=== PATIENT | female | born 1950 | race Caucasian/White ===

== ENCOUNTER 2024-08-01 21:27 | Inpatient (IN) | payer MEDICARE, BC ==
[~2024-08-01] VITALS: Ht 182.9 cm; Wt 79.4 kg
[2024-08-01] MEDS ORDERED: TRAM50TA2 PO (21:50)
[2024-08-01] MEDS ORDERED: VITA1CAP PO (21:50)
[2024-08-01] MEDS ORDERED: FLUT16SP BNOSTRILS (21:50)
[2024-08-01] MEDS ORDERED: FERR-68 PO (21:50)
[2024-08-01] MEDS ORDERED: METO-356 PO (21:50)
[2024-08-01] MEDS ORDERED: MELA5TAB20 PO (21:50)
[2024-08-01] MEDS ORDERED: AZEL6DRO5 EACHEYE (21:50)
[2024-08-01] MEDS ORDERED: OFLO5DRO3 LEFTEYE (21:50)
[2024-08-01] MEDS ORDERED: ESTR42.53 VG (21:50)
[2024-08-01] MEDS ORDERED: FURO20TA4 PO (21:50)
[2024-08-01] MEDS ORDERED: PHEN-894 PO (21:50)
[2024-08-01] MEDS ORDERED: KETO5DRO39 EACHEYE (21:50)
[2024-08-01] MEDS ORDERED: GABA300T25 PO (21:50)
[2024-08-01] MEDS ORDERED: MICO24CM3 VG (21:50)
[2024-08-01] MEDS ORDERED: DICL100G31 TP (21:50)
[2024-08-01] MEDS ORDERED: METF-494 PO (21:50)
[2024-08-01] MEDS ORDERED: SPIR25TA6 PO (21:50)
[2024-08-01] MEDS ORDERED: ATOR80TA PO (21:50)
[2024-08-01] MEDS ORDERED: PANT40TA49 PO (21:50)
[2024-08-01] MEDS ORDERED: CHOL10005 PO (21:50)
[2024-08-01] MEDS ORDERED: ALEN70TA80 PO (21:50)
[2024-08-01] MEDS ORDERED: LOSA25TA27 PO (21:50)
[2024-08-01] MEDS ORDERED: ESCI-9 PO (21:50)
[2024-08-01] MEDS ORDERED: APIX5TAB PO (21:50)
[2024-08-01] MEDS ORDERED: NITR-84 PO (21:50)
[2024-08-01] MEDS ORDERED: KETO15CR2 TP (21:50)
[2024-08-01] MEDS ORDERED: TRAZ-182 PO (21:50)
[2024-08-01 22:37] LABS: BASOPHILS % (AUTO) 0.2 % (0.0-2.0); EOSINOPHILS % (AUTO) 0.4 % (0.0-7.0); HEMATOCRIT 30.1 % (31.2-41.9); HEMOGLOBIN 9.8 g/dL (10.9-14.3); LYMPHOCYTES # (AUTO) 0.8 K/uL (0.8-4.8); LYMPHOCYTES % (AUTO) 9.8 % (20.5-51.5); MEAN CORPUSCULAR HEMOGLOBIN 27.6 uug (24.7-32.8); MEAN CORPUSCULAR HGB CONC 33 g/dL (32.3-35.6); MEAN CORPUSCULAR VOLUME 84.8 fL (75.5-95.3); MONOCYTES # (AUTO) 0.6 K/uL (0.1-1.30); MONOCYTES % (AUTO) 7.3 % (0.0-11.0); NEUTROPHILS # (AUTO) 6.6 K/uL (1.8-8.9); NEUTROPHILS % (AUTO) 82.3 % (38.5-71.5); PLATELET COUNT (AUTO) 301 K/uL (179-408); RED BLOOD CELL COUNT(AUTO) 3.54 MIL/uL (3.63-4.92); RED CELL DISTRIBUTION WIDTH 18.7 % (12.3-17.7); WHITE BLOOD COUNT (AUTO) 8.1 K/uL (3.8-11.8)
[2024-08-01 22:40] LABS: DIFFERENTIAL COMMENT 1
[2024-08-01 22:44] LABS: CALCIUM 10.5 mg/dL (8.5-10.1); CARBON DIOXIDE 32 mmol/L (21-32); CHLORIDE 101 mmol/L (98-107); CREATININE 0.9 mg/dL (0.6-1.3); GLUCOSE 140 mg/dL (74-106); POTASSIUM 4.9 mmol/L (3.5-5.1); SODIUM SERUM 137 mmol/L (136-145); UREA NITROGEN, BLOOD 8 mg/dL (7-18)
[2024-08-01 22:50] LABS: ALANINE AMINOTRANSFERASE 14 U/L (14-59); ALBUMIN 3.4 g/dL (3.4-5.0); ALKALINE PHOSPHATASE 86 U/L (50-136); ASPARTATE AMINOTRANSFERASE 10 U/L (15-37); BILIRUBIN,DIRECT 0.2 mg/dL (0.0-0.2); BILIRUBIN,TOTAL 0.8 mg/dL (0.2-1.0); TOTAL PROTEIN, SERUM 7.4 g/dL (6.4-8.2)
[2024-08-01] MEDS: IV NORMAL SALINE 500 ML BAG IV ONE (22:50)
[2024-08-01] MEDS ORDERED: METOCLOPRAMIDE HCL 10 MG/2 ML VIAL ONE (23:24)
[2024-08-01] MEDS ORDERED: MORPHINE SULFATE 4 MG/1 ML DISP.SYRIN ONE (23:24)
[2024-08-01] MEDS: METOCLOPRAMIDE HCL 10 MG/2 ML VIAL IV ONE (23:32)
[2024-08-01] MEDS: MORPHINE SULFATE 4 MG/1 ML DISP.SYRIN IV ONE (23:32)
[2024-08-02] VITALS (7 sets, daily range): BP systolic 134–166; BP diastolic 47–88; TEMP 97.6–98.4; O2SAT 95–100
[2024-08-02] MEDS ORDERED: ONDANSETRON 4 MG/2 ML VIAL IV PRN (01:30)
[2024-08-02] MEDS ORDERED: DEXTROSE 50% 50 ML DISP.SYRIN IV PRN (01:30)
[2024-08-02] MEDS ORDERED: REMEDY ESSENTIAL ZINC PASTE 113 GM TP PRN (01:30)
[2024-08-02] MEDS ORDERED: ACETAMINOPHEN 325 MG TABLET PO PRN (01:30)
[2024-08-02] MEDS: MORPHINE SULFATE 2 MG/1 ML DISP.SYRIN IV PRN (03:07)
[2024-08-02] MEDS: BLOOD SUGAR DIAGNOSTIC 1 EACH STRIP VI SCH (06:59)
[2024-08-02 08:22] LABS: BASOPHILS % (AUTO) 0.3 % (0.0-2.0); EOSINOPHILS # (AUTO) 0.1 K/uL (0.0-0.7); EOSINOPHILS % (AUTO) 1.3 % (0.0-7.0); HEMATOCRIT 29.8 % (31.2-41.9); HEMOGLOBIN 9.7 g/dL (10.9-14.3); LYMPHOCYTES # (AUTO) 0.9 K/uL (0.8-4.8); LYMPHOCYTES % (AUTO) 14.9 % (20.5-51.5); MEAN CORPUSCULAR HEMOGLOBIN 27.7 uug (24.7-32.8); MEAN CORPUSCULAR HGB CONC 33 g/dL (32.3-35.6); MEAN CORPUSCULAR VOLUME 84.7 fL (75.5-95.3); MONOCYTES # (AUTO) 0.5 K/uL (0.1-1.30); MONOCYTES % (AUTO) 9.6 % (0.0-11.0); NEUTROPHILS # (AUTO) 4.2 K/uL (1.8-8.9); NEUTROPHILS % (AUTO) 73.9 % (38.5-71.5); PLATELET COUNT (AUTO) 289 K/uL (179-408); RED BLOOD CELL COUNT(AUTO) 3.51 MIL/uL (3.63-4.92); RED CELL DISTRIBUTION WIDTH 18.7 % (12.3-17.7); WHITE BLOOD COUNT (AUTO) 5.7 K/uL (3.8-11.8)
[2024-08-02 08:27] LABS: DIFFERENTIAL COMMENT 1
[2024-08-02] MEDS: TRAMADOL HCL 50 MG TABLET PO PRN (08:29)
[2024-08-02] MEDS: SPIRONOLACTONE 25 MG TABLET PO SCH (08:29)
[2024-08-02] MEDS: ESCITALOPRAM OXALATE 10 MG TABLET PO SCH (08:30)
[2024-08-02] MEDS: METOPROLOL SUCCINATE XL 25 MG TAB.SR.24H PO SCH (08:30)
[2024-08-02] MEDS: CHOLECALCIFEROL 1,000 UNIT TABLET PO SCH (08:30)
[2024-08-02] MEDS: PANTOPRAZOLE SODIUM 40 MG TABLET.DR PO SCH (08:30)
[2024-08-02] MEDS: GABAPENTIN 300 MG CAPSULE PO SCH ×2 (08:30→21:00)
[2024-08-02] MEDS: FUROSEMIDE 20 MG TABLET PO SCH (08:30)
[2024-08-02] MEDS: VITAMIN B COMPLEX 1 TABLET PO SCH (08:31)
[2024-08-02] MEDS: LOSARTAN POTASSIUM 25 MG TABLET PO SCH (08:31)
[2024-08-02] MEDS: FLUTICASONE PROP NASAL SPRAY 16 GM BOTTLE NS SCH (08:31)
[2024-08-02 08:34] LABS: CALCIUM 9.4 mg/dL (8.5-10.1); CARBON DIOXIDE 30 mmol/L (21-32); CHLORIDE 102 mmol/L (98-107); CREATININE 0.9 mg/dL (0.6-1.3); GLUCOSE 130 mg/dL (74-106); MAGNESIUM 1.4 mg/dL (1.8-2.4); PHOSPHOROUS 4.8 mg/dL (2.5-4.9); POTASSIUM 3.7 mmol/L (3.5-5.1); SODIUM SERUM 142 mmol/L (136-145); UREA NITROGEN, BLOOD 8 mg/dL (7-18)
[2024-08-02] MEDS ORDERED: Medication Not On Formulary EA (Gabapentin (Gralise) 1 TAB) PO SCH (09:00)
[2024-08-02] MEDS ORDERED: METF-440 PO (13:33)
[2024-08-02] MEDS: MAGNESIUM OXIDE 400 MG TABLET PO SCH (14:38)
[2024-08-02] MEDS: INSULIN REGULAR, HUMAN 1000 UNIT/10 ML VIAL SQ PRN (16:58)
[2024-08-02] MEDS: TRAZODONE 50 MG TABLET PO SCH (21:00)
[2024-08-02] MEDS: DOCUSATE SODIUM 100 MG CAPSULE PO SCH (21:00)
[2024-08-02] MEDS: ATORVASTATIN 40 MG TABLET PO SCH (21:01)
[2024-08-03 00:41] VITALS: O2SAT 97
[2024-08-03 05:49] VITALS: BP 139/54; TEMP 97.7; O2SAT 96
[2024-08-03] MEDS: MELOXICAM 7.5 MG TABLET PO SCH (10:07)
[2024-08-03 15:43] LABS: BASOPHILS % (AUTO) 0.6 % (0.0-2.0); EOSINOPHILS # (AUTO) 0.2 K/uL (0.0-0.7); EOSINOPHILS % (AUTO) 2.8 % (0.0-7.0); HEMATOCRIT 27.5 % (31.2-41.9); HEMOGLOBIN 9.1 g/dL (10.9-14.3); LYMPHOCYTES # (AUTO) 1.2 K/uL (0.8-4.8); LYMPHOCYTES % (AUTO) 18.1 % (20.5-51.5); MEAN CORPUSCULAR HEMOGLOBIN 28.3 uug (24.7-32.8); MEAN CORPUSCULAR HGB CONC 33 g/dL (32.3-35.6); MEAN CORPUSCULAR VOLUME 85.3 fL (75.5-95.3); MONOCYTES # (AUTO) 0.6 K/uL (0.1-1.30); MONOCYTES % (AUTO) 8.3 % (0.0-11.0); NEUTROPHILS # (AUTO) 4.8 K/uL (1.8-8.9); NEUTROPHILS % (AUTO) 70.2 % (38.5-71.5); PLATELET COUNT (AUTO) 286 K/uL (179-408); RED BLOOD CELL COUNT(AUTO) 3.23 MIL/uL (3.63-4.92); RED CELL DISTRIBUTION WIDTH 18.4 % (12.3-17.7); WHITE BLOOD COUNT (AUTO) 6.8 K/uL (3.8-11.8)
[2024-08-03 15:45] LABS: ERYTHROCYTE SEDIMENTATION RATE 40 MM/HR (0-20)
[2024-08-03 15:46] LABS: DIFFERENTIAL COMMENT 1
[2024-08-03] MEDS: CEFAZOLIN 1 G in IV DEXTROSE 5% 50 ML IV SCH (16:54)
[2024-08-03 19:14] VITALS: BP 105/40; TEMP 98.2; O2SAT 94
[2024-08-03 20:00] VITALS: BP 131/91; TEMP 97.4; O2SAT 94
[2024-08-04 05:00] VITALS: BP 152/67; TEMP 98.1; O2SAT 98
[2024-08-04] MEDS: APIXABAN 5 MG TABLET PO SCH (11:06)
[2024-08-04] MEDS: MAGNESIUM HYDROXIDE 30 ML LIQUID UDC PO PRN (14:13)
[2024-08-04 16:02] VITALS: BP 132/57; TEMP 98.3; O2SAT 96
== END 2024-08-04 20:15 | disposition home health service (06) | DRG 561 ==
LOC: ER 21:30 → MEDSURG3 08-02 02:20 → MEDSURG1 08-03 09:16
PROVIDERS: ATTEND Internal Medicine
PROC: 05HD33Z Insertion of Infusion Device into Right Cephalic Vein, Percutaneous Approach (ICD-10-PCS; principal; 2024-08-02)
DX: T84.84XA Pain due to internal orthopedic prosthetic devices, implants and grafts, initial encounter (principal); M25.562 Pain in left knee; M25.462 Effusion, left knee; R26.2 Difficulty in walking, not elsewhere classified; I27.20 Pulmonary hypertension, unspecified; Z96.652 Presence of left artificial knee joint; E83.42 Hypomagnesemia; Z79.899 Other long term (current) drug therapy; Z79.84 Long term (current) use of oral hypoglycemic drugs; Z79.01 Long term (current) use of anticoagulants; D64.9 Anemia, unspecified; K21.9 Gastro-esophageal reflux disease without esophagitis; I11.0 Hypertensive heart disease with heart failure; I50.9 Heart failure, unspecified; E11.9 Type 2 diabetes mellitus without complications; G89.29 Other chronic pain; G89.18 Other acute postprocedural pain; Y79.2 Prosthetic and other implants, materials and accessory orthopedic devices associated with adverse incidents; Y92.89 Other specified places as the place of occurrence of the external cause
CPT/HCPCS: 36415; 73560; 83605; 83735; 84100; 85025; 85651; 86140; 87040; 94760; G0378; J0690; J1815; J2270; J2765; J3535; J7040

== ENCOUNTER 2024-08-07 15:55 | Inpatient (IN) | payer MEDICARE, BC ==
[~2024-08-07] VITALS: Ht 157.5 cm; Wt 66.7 kg
[~2024-08-07 15:55] MED LIST: ALEN70TA80 PO; APIX5TAB PO; ATOR80TA PO; AZEL6DRO5 EACHEYE; CHOL10005 PO; DICL100G31 TP; ESCI-9 PO; ESTR42.53 VG; FERR-68 PO; FLUT16SP BNOSTRILS; FURO20TA4 PO; GABA300T25 PO; KETO15CR2 TP; KETO5DRO39 EACHEYE; LOSA25TA27 PO; MELA5TAB20 PO; METF-440 PO; METO-356 PO; MICO24CM3 VG; OFLO5DRO3 LEFTEYE; PANT40TA49 PO; PHEN-894 PO; SPIR25TA6 PO; TRAM50TA2 PO; TRAZ-182 PO; VITA1CAP PO
[2024-08-07 16:42] LABS: BASOPHILS % (AUTO) 0.4 % (0.0-2.0); EOSINOPHILS % (AUTO) 0.2 % (0.0-7.0); HEMATOCRIT 30.2 % (31.2-41.9); LYMPHOCYTES # (AUTO) 0.7 K/uL (0.8-4.8); LYMPHOCYTES % (AUTO) 12.8 % (20.5-51.5); MEAN CORPUSCULAR HEMOGLOBIN 27.9 uug (24.7-32.8); MEAN CORPUSCULAR HGB CONC 33 g/dL (32.3-35.6); MEAN CORPUSCULAR VOLUME 84.1 fL (75.5-95.3); MONOCYTES # (AUTO) 0.4 K/uL (0.1-1.30); MONOCYTES % (AUTO) 7.5 % (0.0-11.0); NEUTROPHILS # (AUTO) 4.5 K/uL (1.8-8.9); NEUTROPHILS % (AUTO) 79.1 % (38.5-71.5); PLATELET COUNT (AUTO) 284 K/uL (179-408); RED BLOOD CELL COUNT(AUTO) 3.59 MIL/uL (3.63-4.92); RED CELL DISTRIBUTION WIDTH 18.2 % (12.3-17.7); WHITE BLOOD COUNT (AUTO) 5.7 K/uL (3.8-11.8)
[2024-08-07 16:50] LABS: DIFFERENTIAL COMMENT 1
[2024-08-07 16:57] LABS: CALCIUM 9.7 mg/dL (8.5-10.1); CARBON DIOXIDE 28 mmol/L (21-32); CHLORIDE 99 mmol/L (98-107); GLUCOSE 116 mg/dL (74-106); POTASSIUM 3.9 mmol/L (3.5-5.1); SODIUM SERUM 137 mmol/L (136-145); UREA NITROGEN, BLOOD 16 mg/dL (7-18)
[2024-08-07 17:04] LABS: ALANINE AMINOTRANSFERASE 14 U/L (14-59); ALBUMIN 3.2 g/dL (3.4-5.0); ALKALINE PHOSPHATASE 89 U/L (50-136); ASPARTATE AMINOTRANSFERASE 29 U/L (15-37); BILIRUBIN,DIRECT 0.4 mg/dL (0.0-0.2); BILIRUBIN,TOTAL 1.1 mg/dL (0.2-1.0); TOTAL PROTEIN, SERUM 7.4 g/dL (6.4-8.2)
[2024-08-07 17:21] LABS: NT-PRO BNP 1226 pg/mL (0-125)
[2024-08-07 17:23] LABS: *BILIRUBIN,URIN NEGATIVE (NEGATIVE); *CLARITY,URINE CLEAR (CLEAR); *COLOR,URINE YELLOW (YELLOW); *KETONES,URINE TRACE (NEGATIVE); *PROTEIN,URINE 2+ (NEGATIVE); *UROBILINOGEN,URINE 0.2 E.U./dl (NORMAL); LEUKOCYTE ESTERASE ,URINE TRACE (NEGATIVE); NITRITE, URINE NEGATIVE (NEGATIVE); UGLUCOSE NEGATIVE (NEGATIVE)
[2024-08-07 17:24] LABS: *BLOOD, URINE TRACE (NEGATIVE)
[2024-08-07 17:45] LABS: BACTERIA,URINE FEW /HPF (NONE SEEN); RBC,URINE 0-3 /HPF (0-3); SQUAMOUS EPITHELIAL CELL,UR FEW /HPF (NONE SEEN)
[2024-08-07] MEDS ORDERED: ONDANSETRON 4 MG/2 ML VIAL ONE (17:59)
[2024-08-07] MEDS: ONDANSETRON 4 MG/2 ML VIAL IV ONE ×2 (18:05)
[2024-08-07] MEDS ORDERED: VANCOMYCIN IV 200 ML ONE (19:32)
[2024-08-07] MEDS ORDERED: CEFTRIAXONE /D5W 50ML IVPB **ER PYXIS IV ONE (19:32)
[2024-08-07] MEDS: VANCOMYCIN IV 1,000 MG in IV DEXTROSE 5% 250 ML IV ONE (19:35)
[2024-08-07] MEDS ORDERED: diphenhydrAMINE 50 MG/1 ML VIAL ONE (21:16)
[2024-08-07] MEDS: diphenhydrAMINE 50 MG/1 ML VIAL IV ONE (21:16)
[2024-08-07] MEDS: CEFTRIAXONE 2 G in IV DEXTROSE 5% 100 ML IV ONE (22:11)
[2024-08-07] MEDS ORDERED: ENOXAPARIN SODIUM 40 MG/0.4 ML DISP.SYRIN SQ SCH (23:00)
[2024-08-07] MEDS ORDERED: KETOROLAC 0.5% OPHT DROP 3 ML BOTTLE EACHEYE SCH (23:00)
[2024-08-07] MEDS ORDERED: KETOROLAC TROMETHAMINE 10 MG TABLET PO PRN (23:45)
[2024-08-08] MEDS: TRAZODONE 50 MG TABLET PO SCH (00:40)
[2024-08-08] MEDS: ATORVASTATIN 40 MG TABLET PO SCH (00:41)
[2024-08-08] MEDS: TRAMADOL HCL 50 MG TABLET PO PRN (00:41)
[2024-08-08 00:44] VITALS: BP 173/75; TEMP 100.5; O2SAT 98
[2024-08-08] MEDS: ACETAMINOPHEN 325 MG TABLET PO PRN (00:55)
[2024-08-08] MEDS: IV NS 1000 ML 1,000 ML IV PRN (00:56)
[2024-08-08] MEDS: MORPHINE SULFATE 2 MG/1 ML DISP.SYRIN IV PRN (01:38)
[2024-08-08 06:00] VITALS: BP 154/69; TEMP 98.2; O2SAT 97
[2024-08-08] MEDS: ALENDRONATE SODIUM 70 MG TABLET PO SCH (06:36)
[2024-08-08 06:42] LABS: BASOPHILS % (AUTO) 0.5 % (0.0-2.0); EOSINOPHILS # (AUTO) 0.1 K/uL (0.0-0.7); HEMATOCRIT 27.2 % (31.2-41.9); HEMOGLOBIN 9.1 g/dL (10.9-14.3); LYMPHOCYTES # (AUTO) 1.2 K/uL (0.8-4.8); LYMPHOCYTES % (AUTO) 28.5 % (20.5-51.5); MEAN CORPUSCULAR HEMOGLOBIN 28.4 uug (24.7-32.8); MEAN CORPUSCULAR HGB CONC 34 g/dL (32.3-35.6); MEAN CORPUSCULAR VOLUME 84.5 fL (75.5-95.3); MONOCYTES # (AUTO) 0.3 K/uL (0.1-1.30); MONOCYTES % (AUTO) 8.2 % (0.0-11.0); NEUTROPHILS # (AUTO) 2.5 K/uL (1.8-8.9); NEUTROPHILS % (AUTO) 60.8 % (38.5-71.5); PLATELET COUNT (AUTO) 248 K/uL (179-408); RED BLOOD CELL COUNT(AUTO) 3.21 MIL/uL (3.63-4.92); WHITE BLOOD COUNT (AUTO) 4.1 K/uL (3.8-11.8)
[2024-08-08] MEDS ORDERED: PANTOPRAZOLE SODIUM 40 MG TABLET.DR PO SCH (07:00)
[2024-08-08 07:05] LABS: CALCIUM 9.3 mg/dL (8.5-10.1); CARBON DIOXIDE 29 mmol/L (21-32); CHLORIDE 102 mmol/L (98-107); CREATININE 0.8 mg/dL (0.6-1.3); GLUCOSE 120 mg/dL (74-106); MAGNESIUM 1.7 mg/dL (1.8-2.4); PHOSPHOROUS 3.1 mg/dL (2.5-4.9); POTASSIUM 3.5 mmol/L (3.5-5.1); SODIUM SERUM 139 mmol/L (136-145); UREA NITROGEN, BLOOD 11 mg/dL (7-18)
[2024-08-08 07:11] LABS: DIFFERENTIAL COMMENT 1
[2024-08-08] MEDS: ENOXAPARIN SODIUM 40 MG/0.4 ML DISP.SYRIN SQ SCH (08:45)
[2024-08-08] MEDS: FUROSEMIDE 20 MG TABLET PO SCH (08:45)
[2024-08-08] MEDS: PHENAZOPYRIDINE HCL 100 MG TABLET PO SCH (08:45)
[2024-08-08] MEDS: METOPROLOL SUCCINATE XL 25 MG TAB.SR.24H PO SCH (08:46)
[2024-08-08] MEDS: CHOLECALCIFEROL 1,000 UNIT TABLET PO SCH (08:46)
[2024-08-08] MEDS: METFORMIN HCL 500 MG TABLET PO SCH (08:46)
[2024-08-08] MEDS: PANTOPRAZOLE SODIUM 40 MG TABLET.DR PO SCH ×2 (08:46→16:30)
[2024-08-08] MEDS: ESCITALOPRAM OXALATE 10 MG TABLET PO SCH (08:46)
[2024-08-08] MEDS: LOSARTAN POTASSIUM 25 MG TABLET PO SCH (08:47)
[2024-08-08] MEDS: SPIRONOLACTONE 25 MG TABLET PO SCH (08:47)
[2024-08-08] MEDS: VITAMIN B COMPLEX 1 TABLET PO SCH (08:48)
[2024-08-08] MEDS ORDERED: KETOROLAC 0.5% OPHT DROP 3 ML BOTTLE EACHEYE SCH (09:00)
[2024-08-08] MEDS ORDERED: FLUTICASONE PROP NASAL SPRAY 16 GM BOTTLE NS SCH (09:00)
[2024-08-08] MEDS: ONDANSETRON 4 MG/2 ML VIAL IV PRN (11:59)
[2024-08-08 12:00] VITALS: BP 148/58; TEMP 97.8; O2SAT 97
[2024-08-08] MEDS: VANCOMYCIN HCL 750 MG in IV DEXTROSE 5% 250 ML IV SCH (12:01)
[2024-08-08] MEDS: MAGNESIUM OXIDE 400 MG TABLET PO ONE (12:05)
[2024-08-08 16:00] VITALS: BP 124/49; TEMP 98.4; O2SAT 98
[2024-08-09 06:40] VITALS: BP 172/67; TEMP 98; O2SAT 98
[2024-08-09 08:00] VITALS: BP 142/56; TEMP 98.1; O2SAT 98
[2024-08-09 08:36] LABS: CALCIUM 9.1 mg/dL (8.5-10.1); CARBON DIOXIDE 28 mmol/L (21-32); CHLORIDE 105 mmol/L (98-107); CREATININE 0.9 mg/dL (0.6-1.3); GLUCOSE 85 mg/dL (74-106); MAGNESIUM 1.7 mg/dL (1.8-2.4); POTASSIUM 3.8 mmol/L (3.5-5.1); SODIUM SERUM 141 mmol/L (136-145); UREA NITROGEN, BLOOD 7 mg/dL (7-18)
[2024-08-09] MEDS: FERROUS SULFATE 325 MG TABEC PO SCH (09:38)
[2024-08-09] MEDS: GABAPENTIN 300 MG CAPSULE PO SCH (09:39)
[2024-08-09] MEDS: MAGNESIUM OXIDE 400 MG TABLET PO ONE (12:58)
[2024-08-09 20:50] VITALS: BP 166/64; TEMP 98.2; O2SAT 97
[2024-08-09] MEDS: MELATONIN 3 MG TABLET PO SCH (20:56)
[2024-08-10 05:52] VITALS: BP 134/77; TEMP 97.9; O2SAT 95
[2024-08-10 07:44] VITALS: BP 180/69; TEMP 97.8; O2SAT 98
[2024-08-10 07:54] LABS: CALCIUM 9.3 mg/dL (8.5-10.1); CARBON DIOXIDE 28 mmol/L (21-32); CHLORIDE 106 mmol/L (98-107); CREATININE 0.8 mg/dL (0.6-1.3); GLUCOSE 95 mg/dL (74-106); MAGNESIUM 1.7 mg/dL (1.8-2.4); POTASSIUM 3.7 mmol/L (3.5-5.1); SODIUM SERUM 142 mmol/L (136-145); UREA NITROGEN, BLOOD 4 mg/dL (7-18)
[2024-08-10] MEDS: MAGNESIUM OXIDE 400 MG TABLET PO ONE (09:34)
[2024-08-10 11:48] VITALS: BP 165/67; TEMP 97.7; O2SAT 97
[2024-08-10] MEDS: DIPHENOXYLATE HCL/ATROP SULF TABLET PO PRN (12:07)
[2024-08-10 12:28] LABS: BASOPHILS % (AUTO) 0.2 % (0.0-2.0); DIFFERENTIAL COMMENT 1; EOSINOPHILS # (AUTO) 0.1 K/uL (0.0-0.7); EOSINOPHILS % (AUTO) 1.5 % (0.0-7.0); HEMATOCRIT 28.8 % (31.2-41.9); HEMOGLOBIN 9.6 g/dL (10.9-14.3); LYMPHOCYTES # (AUTO) 0.7 K/uL (0.8-4.8); LYMPHOCYTES % (AUTO) 13.3 % (20.5-51.5); MEAN CORPUSCULAR HEMOGLOBIN 28.3 uug (24.7-32.8); MEAN CORPUSCULAR HGB CONC 33 g/dL (32.3-35.6); MEAN CORPUSCULAR VOLUME 84.8 fL (75.5-95.3); MONOCYTES # (AUTO) 0.3 K/uL (0.1-1.30); NEUTROPHILS # (AUTO) 4.1 K/uL (1.8-8.9); PLATELET COUNT (AUTO) 281 K/uL (179-408); RED BLOOD CELL COUNT(AUTO) 3.39 MIL/uL (3.63-4.92); RED CELL DISTRIBUTION WIDTH 17.5 % (12.3-17.7); WHITE BLOOD COUNT (AUTO) 5.2 K/uL (3.8-11.8)
[2024-08-10 15:44] VITALS: BP 144/66; TEMP 97.8; O2SAT 97
[2024-08-10 19:54] VITALS: BP 160/76; TEMP 98.1; O2SAT 95
[2024-08-10] MEDS: LOPERAMIDE HCL 2 MG CAPSULE PO PRN (20:39)
[2024-08-10] MEDS: VANCOMYCIN HCL 750 MG in IV DEXTROSE 5% 250 ML IV SCH (21:25)
[2024-08-10 22:10] VITALS: BP 148/70; TEMP 98.1; O2SAT 95
[2024-08-11] MEDS: ZOLPIDEM 5 MG TABLET PO PRN (01:20)
[2024-08-11] MEDS: TRAZODONE 50 MG TABLET PO PRN (01:48)
[2024-08-11 05:15] VITALS: BP 161/77; TEMP 97.4; O2SAT 95
[2024-08-11] MEDS ORDERED: TRAZODONE 50 MG TABLET PO PRN (05:30)
[2024-08-11 06:49] LABS: BASOPHILS % (AUTO) 0.4 % (0.0-2.0); EOSINOPHILS # (AUTO) 0.1 K/uL (0.0-0.7); EOSINOPHILS % (AUTO) 2.3 % (0.0-7.0); HEMATOCRIT 27.8 % (31.2-41.9); HEMOGLOBIN 9.6 g/dL (10.9-14.3); LYMPHOCYTES # (AUTO) 1.3 K/uL (0.8-4.8); LYMPHOCYTES % (AUTO) 24.5 % (20.5-51.5); MEAN CORPUSCULAR HGB CONC 35 g/dL (32.3-35.6); MONOCYTES # (AUTO) 0.4 K/uL (0.1-1.30); MONOCYTES % (AUTO) 7.7 % (0.0-11.0); NEUTROPHILS # (AUTO) 3.3 K/uL (1.8-8.9); NEUTROPHILS % (AUTO) 65.1 % (38.5-71.5); PLATELET COUNT (AUTO) 279 K/uL (179-408); RED BLOOD CELL COUNT(AUTO) 3.31 MIL/uL (3.63-4.92); RED CELL DISTRIBUTION WIDTH 17.5 % (12.3-17.7); WHITE BLOOD COUNT (AUTO) 5.1 K/uL (3.8-11.8)
[2024-08-11 07:06] LABS: CALCIUM 8.9 mg/dL (8.5-10.1); CARBON DIOXIDE 28 mmol/L (21-32); CHLORIDE 105 mmol/L (98-107); CREATININE 0.8 mg/dL (0.6-1.3); GLUCOSE 92 mg/dL (74-106); MAGNESIUM 1.3 mg/dL (1.8-2.4); PHOSPHOROUS 3.3 mg/dL (2.5-4.9); POTASSIUM 3.5 mmol/L (3.5-5.1); SODIUM SERUM 141 mmol/L (136-145); UREA NITROGEN, BLOOD 4 mg/dL (7-18)
[2024-08-11 07:08] LABS: DIFFERENTIAL COMMENT 1
[2024-08-11 11:36] VITALS: BP 164/46; TEMP 98.3; O2SAT 97
[2024-08-11] MEDS: MAGNESIUM SULFATE/D5W 100 ML IV SCH (11:48)
[2024-08-11] MEDS ORDERED: LIDOCAINE HCL 1% 20 ML VIAL IJ PRN (12:45)
[2024-08-11 16:00] VITALS: BP 133/64; TEMP 98.2; O2SAT 94
[2024-08-11 19:46] VITALS: BP 157/61; TEMP 98.1; O2SAT 96
[2024-08-12] MEDS: MELATONIN 3 MG TABLET PO PRN (02:51)
[2024-08-12 05:33] VITALS: BP 133/54; TEMP 98.2; O2SAT 95
[2024-08-12 07:37] LABS: CARBON DIOXIDE 27 mmol/L (21-32); CHLORIDE 105 mmol/L (98-107); CREATININE 0.8 mg/dL (0.6-1.3); GLUCOSE 96 mg/dL (74-106); MAGNESIUM 2.1 mg/dL (1.8-2.4); POTASSIUM 3.5 mmol/L (3.5-5.1); SODIUM SERUM 140 mmol/L (136-145); UREA NITROGEN, BLOOD 6 mg/dL (7-18)
[2024-08-12 11:48] VITALS: BP 131/49; TEMP 97.9; O2SAT 97
[2024-08-12 15:44] VITALS: BP 140/69; TEMP 97.9; O2SAT 97
[2024-08-12] MEDS ORDERED: VANCOMYCIN IV 1,000 MG in IV DEXTROSE 5% 250 ML IV SCH (21:00)
[2024-08-15] MEDS ORDERED: ALENDRONATE SODIUM 70 MG TABLET PO SCH (06:00)
== END 2024-08-12 20:08 | disposition home health service (06) | DRG 565 ==
LOC: ER 15:55 → MEDSURG3 23:50
PROVIDERS: ADMIT Nurse Practitioner Acute Care; ATTEND Nurse Practitioner Acute Care
PROC: 0S9D3ZX Drainage of Left Knee Joint, Percutaneous Approach, Diagnostic (ICD-10-PCS; principal; 2024-08-09)
DX: M25.462 Effusion, left knee (principal); D68.59 Other primary thrombophilia; E44.1 Mild protein-calorie malnutrition; N39.0 Urinary tract infection, site not specified; E88.09 Other disorders of plasma-protein metabolism, not elsewhere classified; R74.01 Elevation of levels of liver transaminase levels; Z96.652 Presence of left artificial knee joint; Z74.09 Other reduced mobility; I27.20 Pulmonary hypertension, unspecified; K21.9 Gastro-esophageal reflux disease without esophagitis; E11.9 Type 2 diabetes mellitus without complications; Z79.84 Long term (current) use of oral hypoglycemic drugs; Z79.899 Other long term (current) drug therapy; D64.9 Anemia, unspecified; E83.42 Hypomagnesemia; I11.0 Hypertensive heart disease with heart failure; I50.9 Heart failure, unspecified; Z79.01 Long term (current) use of anticoagulants; R11.0 Nausea; T36.95XA Adverse effect of unspecified systemic antibiotic, initial encounter; Y92.039 Unspecified place in apartment as the place of occurrence of the external cause
CPT/HCPCS: 36415; 71045; 73700; 83605; 83690; 83735; 84100; 84484; 85025; 85651; 85730; 86140; 87040; A4663; G0378; J0696; J1200; J1650; J2270; J2405; J3370; J3475; J3490; J7040; J7050; J8499